=== PATIENT | male | born 1940 | race Caucasian/White ===

== ENCOUNTER → 2017-10-08 | Outpatient (CLI) | payer OTHER ==
--- NOTE | 2017-10-08 10:20 | DIAGNOSTIC IMAGING REPORT ---
(TESTICULAR) SCROTUM-CONT HISTORY: Epididymitis. N45.1 [id number] COMPARISON: None. FINDINGS: Right testis: Maximum dimension 3.9 cm. Normal vascular flow. Right epididymis demonstrates a mild degree of hypoechogenicity at the epididymal tail with several small calcifications. Mild epididymis inflammatory change is considered. Left testis: Maximum dimension 4.4 cm. Normal vascular flow. Small varicocele. Several epididymal cyst measuring up to 1 cm. IMPRESSION: 1. Normal testicular ultrasound. 2. Suggestion of mild right epididymitis. The above report was generated using voice recognition software. It may contain grammatical, syntax or spelling errors. Electronically signed by: Brian Chavez M.D. 10/08/2017 10:19 AM Dictated Date/Time: 10/08/2017 10:17 AM
== END | disposition home or self-care (01) ==
LOC: C.ULTR 09:11
PROVIDERS: ATTEND Urology
DX: N45.1 Epididymitis (principal)

== ENCOUNTER → 2017-10-15 | Outpatient (CLI) | payer OTHER | END | disposition home or self-care (01) | LOC: C.LABSPEC 17:01 | PROVIDERS: ATTEND Urology | DX: N41.9 Inflammatory disease of prostate, unspecified (principal) ==